=== PATIENT | female | born 1950 | race Caucasian/White ===

== ENCOUNTER 2022-02-15 13:41 | Emergency (ER) | payer MEDICARE, OTHER ==
[~2022-02-15 13:41] MED LIST: CARAFATE1 GM PO; CLARITIN10 M2 PO; FLEXERIL10 MG PO; LEVOTHYROXINE75 MC1 PO; MELATONIN5 M2 PO; OMEPRAZOLE10 MG PO; ROSUVASTATIN CA10 MG PO
[2022-02-15 14:30] LABS: BASOPHIL 0.3 % (0-2); EOSINOPHIL 0.2 % (0-7); HCT 42.2 % (37.0-47.0); HGB 13.9 g/dl (12.5-16.0); LYMPHOCYTE 22.4 % (15-48); MCH 30.4 pg (25.0-31.0); MCHC 32.9 g/dL (32.0-36.0); MCV 92.3 fL (78.0-100.0); MONOCYTE 7.9 % (0-12); MPV 10.3 fL (6.0-9.5); NEUTROPHIL 68.8 % (41-80); NRBC 0; PLT 218 K/uL (150-400); RBC 4.57 M/uL (4.20-5.40); RDW 13.7 % (11.5-14.0); WBC 9.8 K/uL (4.0-10.5)
[2022-02-15 14:35] LABS: INR 0.94 (0.9-1.2); PTT 21.9 SECONDS (24.4-34.7)
[2022-02-15 14:36] LABS: D-DIMER 1.55 ug/mLFEU (0.00-0.41)
[2022-02-15 14:56] LABS: ALBUMIN 3.7 g/dL (3.4-5.0); BILIRUBIN - TOTAL 0.6 mg/dL (0.2-1.0); BUN/CREAT RATIO (CALC) 32.4 RATIO; CREATININE 0.68 mg/dL (0.51-0.95); GLOBULIN (CALCULATION) 3.5 g/dL; MAGNESIUM 2.2 mg/dL (1.8-2.4); POTASSIUM 4.2 mmol/L (3.5-5.1); TOTAL PROTEIN 7.2 g/dL (6.4-8.2)
== END 2022-02-15 18:29 | disposition home or self-care (01) ==
LOC: FER 13:41
PROVIDERS: Emergency Medicine
DX: R07.89 Other chest pain (principal); E66.9 Obesity, unspecified; E78.5 Hyperlipidemia, unspecified; E03.9 Hypothyroidism, unspecified; Z20.822 Contact with and (suspected) exposure to COVID-19; Z79.890 Hormone replacement therapy; Z79.899 Other long term (current) drug therapy
CPT/HCPCS: 36415; 71045; 71275; 80053; 83735; 83880; 84484; 85025; 85379; 85610; 85730; 93005; Q9967; U0002